=== PATIENT | female | born 1955 | race Caucasian/White ===

== ENCOUNTER 2024-06-05 10:44 | Inpatient (IN) | payer MEDICARE ==
[2024-06-01 11:21] LABS: BASOPHILS % (AUTO) 0.5 % (0-1); EOSINOPHILS # (AUTO) 0.3 X10'3 (0-0.9); EOSINOPHILS % (AUTO) 3.7 % (0-6); HEMATOCRIT 40.4 % (35.0-45.0); HEMOGLOBIN 13.5 g/dl (12.0-16.0); LYMPHOCYTES # (AUTO) 3.3 X10'3 (1.1-4.8); LYMPHOCYTES % (AUTO) 48.4 % (21-51); MEAN CORPUSCULAR HEMOGLOBIN 30.8 PG (27.0-31.0); MEAN CORPUSCULAR HGB CONC 33.4 g/dL (33.0-36.5); MEAN CORPUSCULAR VOLUME 92.1 FL (78-98); MEAN PLATELET VOLUME 7.1 FL (7.4-10.4); MONOCYTES # (AUTO) 0.6 X10'3 (0-0.9); MONOCYTES % (AUTO) 8.5 % (2-12); NEUTROPHILS # (AUTO) 2.6 X10'3 (1.8-7.7); NEUTROPHILS % (AUTO) 38.9 % (42-75); PLATELET COUNT 289 X10'3 (140-440); RED BLOOD COUNT 4.39 X10'6 (4.20-5.60); RED CELL DISTRIBUTION WIDTH 13.3 % (11.5-14.5); WHITE BLOOD COUNT 6.7 X10'3 (4.5-11.0)
[2024-06-01 11:35] LABS: APTT 24 SECONDS (22-32); PROTHROMBIN TIME 10.3 SECONDS (9.0-12.0)
[2024-06-01 11:39] LABS: ALBUMIN 4.3 G/DL (3.4-5.0); ANION GAP 9 (8-16); BLOOD UREA NITROGEN 18 MG/DL (7-18); BUN/CREATININE RATIO 16.2 (10.0-20.0); CALCIUM 9.3 MG/DL (8.5-10.1); CHLORIDE 104 MMOL/L (99-107); CHOL/HDL RATIO 2.1 (0.00-4.99); CHOLESTEROL 144 MG/DL (0-200); CREATININE 1.11 MG/DL (0.40-0.90); GLUCOSE 113 MG/DL (70-104); HDL CHOLESTEROL 67 MG/DL (35-60); LDL CHOLESTEROL 53 MG/DL (50-100); POTASSIUM 4.2 MMOL/L (3.5-5.1); SODIUM 141 MMOL/L (135-145); TOTAL CARBON DIOXIDE 28.2 MMOL/L (24-32); TRIGLYCERIDES 102 MG/DL (20-135); eGFR 49 ML/MIN
[~2024-06-05] VITALS: Ht 172.7 cm; Wt 81.8 kg
[2024-06-05] VITALS (16 sets, daily range): BP systolic 87–136; BP diastolic 43–66; PULSE 46–75; RESP 12–17; TEMP 98.1–99.1; O2SAT 93–97
[2024-06-05] MEDS ORDERED: ROSU40TA89 PO (11:42)
[2024-06-05] MEDS ORDERED: METF-900 PO (11:42)
[2024-06-05] MEDS ORDERED: LOSA100T58 PO (11:42)
[2024-06-05] MEDS ORDERED: PANT40TA54 PO (11:42)
[2024-06-05] MEDS ORDERED: CLOP75TA34 PO (11:42)
[2024-06-05] MEDS ORDERED: phenylephrine 10mg/ml inj. ONE (13:56)
[2024-06-05] MEDS ORDERED: LIDOcaine 1% 30ml preserv. free vial ONE (13:57)
[2024-06-05] MEDS ORDERED: atropine 0.1mg/ml 10ml syringe ONE (13:57)
[2024-06-05] MEDS ORDERED: DOPamine 400mg/D5W 250ml 0 ML IV ONE (13:57)
[2024-06-05] MEDS ORDERED: iohexol 350MG/ML 100ml bottle IV ONE ×2 (13:57)
[2024-06-05] MEDS ORDERED: heparin 1,000unit/ml 10ml vial 10 ML ONE (14:16)
[2024-06-05] MEDS: normal saline 1,000 ML IV SCH (14:30)
[2024-06-05] MEDS ORDERED: fentaNYL/PF 50MCG/1 ML 2ML syringe ONE (14:59)
[2024-06-05] MEDS ORDERED: clopidogrel 300mg tablet ONE (15:00)
[2024-06-05] MEDS ORDERED: aspirin 325mg tablet ONE (15:00)
[2024-06-05] MEDS ORDERED: ASPI81TA52 PO ×2 (17:52→17:53)
[2024-06-05] MEDS: LORazepam 0.5 MG tablet PO PRN (17:58)
[2024-06-05] MEDS: diphenhydrAMINE 25mg capsule PO PRN (17:58)
[2024-06-05] MEDS ORDERED: proCHLORperazine 10 MG/2 ml inj IV PRN (18:30)
[2024-06-05] MEDS ORDERED: hydrALAZINE 20mg/ml inj. IV PRN (18:30)
[2024-06-05] MEDS ORDERED: acetaminophen 325mg tablet PO PRN (18:30)
[2024-06-05] MEDS ORDERED: pseudoephedrine 30mg tablet PO PRN (18:35)
[2024-06-05] MEDS: HYDROcodone/acetaminophen 10/325mg tab PO PRN (20:39)
[2024-06-06 02:00] VITALS: BP 91/45; PULSE 52; RESP 17; TEMP 99; O2SAT 93
[2024-06-06] MEDS: HYDROcodone/acetaminophen 5mg/325mg tablet PO PRN (05:56)
[2024-06-06 06:59] VITALS: BP 93/41; PULSE 56; RESP 12; TEMP 97.2; O2SAT 96
[2024-06-06 08:00] VITALS: BP_SYST 33; PULSE 109
[2024-06-06] MEDS: losartan 50mg tablet PO SCH (08:00)
[2024-06-06] MEDS: METFORMIN ER 500 MG TAB PO SCH (08:00)
[2024-06-06] MEDS: atorvastatin 20mg tablet PO SCH (08:06)
[2024-06-06] MEDS: aspirin 81mg, enteric-coated 1 TAB TABLET.DR PO SCH (08:06)
[2024-06-06] MEDS: clopidogrel 75mg tablet PO SCH (08:07)
[2024-06-06] MEDS: pantoprazole 40mg Tablet.DR PO SCH (08:07)
[2024-06-06 11:03] VITALS: RESP 12; O2SAT 96
== END 2024-06-06 12:15 | disposition home or self-care (01) | DRG 36 ==
LOC: SSTAY O 11:10 → PCU 3S 11:46 → SSTAY O 17:55 → EDSTATUS 18:30 → PCU 3S 06-06 12:15 → SSTAY O 06-06 12:15
PROVIDERS: ADMIT Student in an Organized Health Care Education/Training Program; ATTEND Student in an Organized Health Care Education/Training Program
PROC: 037K3DZ Dilation of Right Internal Carotid Artery with Intraluminal Device, Percutaneous Approach (ICD-10-PCS; principal; 2024-06-05)
PROC: B3131ZZ Fluoroscopy of Right Common Carotid Artery using Low Osmolar Contrast (ICD-10-PCS; 2024-06-05)
PROC: B3161ZZ Fluoroscopy of Right Internal Carotid Artery using Low Osmolar Contrast (ICD-10-PCS; 2024-06-05)
PROC: B3191ZZ Fluoroscopy of Right External Carotid Artery using Low Osmolar Contrast (ICD-10-PCS; 2024-06-05)
PROC: B41D1ZZ Fluoroscopy of Aorta and Bilateral Lower Extremity Arteries using Low Osmolar Contrast (ICD-10-PCS; 2024-06-05)
DX: I65.23 Occlusion and stenosis of bilateral carotid arteries (principal); I10 Essential (primary) hypertension; E11.9 Type 2 diabetes mellitus without complications; Z86.73 Personal history of transient ischemic attack (TIA), and cerebral infarction without residual deficits
CPT/HCPCS: 36415; 37215; 80048; 80061; 82948; 85025; 85610; 85730; 93005; A6258; C1725; C1760; C1769; C1876; C1884; C1894; G0378; J0461; J1265; J1644; J2003; J2370; J3010; J7030; Q9967

== ENCOUNTER 2024-08-07 13:45 | Day surgery (SDC) | payer MEDICARE ==
[2024-08-04 11:54] LABS: BASOPHILS % (AUTO) 0.5 % (0-1); EOSINOPHILS # (AUTO) 0.2 X10'3 (0-0.9); EOSINOPHILS % (AUTO) 2.8 % (0-6); HEMATOCRIT 37.9 % (35.0-45.0); HEMOGLOBIN 12.9 g/dl (12.0-16.0); LYMPHOCYTES % (AUTO) 38.1 % (21-51); MEAN CORPUSCULAR HEMOGLOBIN 31.3 PG (27.0-31.0); MEAN CORPUSCULAR HGB CONC 34.1 g/dL (33.0-36.5); MEAN CORPUSCULAR VOLUME 91.8 FL (78-98); MEAN PLATELET VOLUME 7.1 FL (7.4-10.4); MONOCYTES # (AUTO) 0.6 X10'3 (0-0.9); MONOCYTES % (AUTO) 7.1 % (2-12); NEUTROPHILS % (AUTO) 51.5 % (42-75); PLATELET COUNT 318 X10'3 (140-440); RED BLOOD COUNT 4.13 X10'6 (4.20-5.60); RED CELL DISTRIBUTION WIDTH 13.6 % (11.5-14.5); WHITE BLOOD COUNT 7.8 X10'3 (4.5-11.0)
[2024-08-04 12:02] LABS: ALBUMIN 4.4 G/DL (3.4-5.0); ANION GAP 7 (8-16); BLOOD UREA NITROGEN 23 MG/DL (7-18); BUN/CREATININE RATIO 18.9 (10.0-20.0); CALCIUM 9.3 MG/DL (8.5-10.1); CHLORIDE 101 MMOL/L (99-107); CREATININE 1.22 MG/DL (0.40-0.90); GLUCOSE 201 MG/DL (70-104); POTASSIUM 4.2 MMOL/L (3.5-5.1); SODIUM 138 MMOL/L (135-145); TOTAL CARBON DIOXIDE 29.9 MMOL/L (24-32); eGFR 44 ML/MIN
[2024-08-04 12:06] LABS: APTT 24 SECONDS (22-32); PROTHROMBIN TIME 10.4 SECONDS (9.0-12.0)
[2024-08-07] VITALS (8 sets, daily range): BP systolic 148–171; BP diastolic 63–69; PULSE 74–82; RESP 16; TEMP 98.3; O2SAT 94–98
[~2024-08-07] VITALS: Ht 172.7 cm; Wt 87.6 kg
[~2024-08-07 13:45] MED LIST: ASPI81TA52 PO; CLOP75TA34 PO; LOSA100T58 PO; METF-900 PO; PANT40TA54 PO; ROSU40TA89 PO
[2024-08-07] MEDS ORDERED: ACET-1008 PO (14:42)
[2024-08-07] MEDS ORDERED: LIDOcaine 1% 30ml preserv. free vial ONE (15:41)
[2024-08-07] MEDS ORDERED: iohexol 350MG/ML 100ml bottle IV ONE (15:41)
[2024-08-07] MEDS ORDERED: phenylephrine 10mg/ml inj. ONE (15:41)
[2024-08-07] MEDS ORDERED: heparin 1,000unit/ml 10ml vial 0 ML ONE (15:41)
[2024-08-07] MEDS ORDERED: DOPamine 400mg/D5W 250ml 0 ML IV ONE (15:41)
[2024-08-07] MEDS ORDERED: atropine 0.1mg/ml 10ml syringe ONE (15:41)
[2024-08-07] MEDS: diphenhydrAMINE 25mg capsule PO PRN (16:35)
[2024-08-07] MEDS: LORazepam 0.5 MG tablet PO PRN (16:35)
[2024-08-07] MEDS: normal saline 1,000 ML IV SCH (16:37)
[2024-08-07] MEDS ORDERED: hydrALAZINE 20mg/ml inj. ONE (17:38)
[2024-08-07] MEDS ORDERED: HYDROcodone/acetaminophen 10/325mg tab PO PRN (19:15)
[2024-08-07] MEDS ORDERED: HYDROcodone/acetaminophen 5mg/325mg tablet PO PRN (19:15)
== END 2024-08-07 19:55 | disposition home or self-care (01) ==
LOC: SSTAY O 13:45
PROVIDERS: ATTEND Student in an Organized Health Care Education/Training Program
DX: I65.23 Occlusion and stenosis of bilateral carotid arteries (principal); I10 Essential (primary) hypertension; E78.5 Hyperlipidemia, unspecified; E11.9 Type 2 diabetes mellitus without complications; Q25.49 Other congenital malformations of aorta; Z86.73 Personal history of transient ischemic attack (TIA), and cerebral infarction without residual deficits; K21.9 Gastro-esophageal reflux disease without esophagitis; F41.9 Anxiety disorder, unspecified; G47.00 Insomnia, unspecified; Z79.899 Other long term (current) drug therapy
CPT/HCPCS: 36222; 36415; 80048; 82948; 85025; 85610; 85730; 93005; A4663; A6258; C1760; J0360; J0461; J1644; J2003; J2370; J7030; Q0163; Q9967; Z7610; J1265